=== PATIENT | male | born 1960 | race Caucasian/White ===

== ENCOUNTER 2021-06-14 01:06 | Emergency (ER) | payer SELFPAY ==
[2021-06-14] MEDS ORDERED: KETOROLAC 60 MG/2 ML VIAL IM STA (02:30)
[2021-06-14] MEDS ORDERED: HYDROmorphone 1 MG/ML CARPUJECT IM STA (02:30)
[2021-06-14] MEDS ORDERED: TAMSULOSIN 0.4 MG CAPSULE PO STA (02:30)
--- NOTE | 2021-06-14 04:02 | ED Physician Documentation ---
History of Present Illness - Stated complaint Stated Complaint: PAIN FROM PASSING KIDNEY STONES - Chief complaint Chief Complaint: Abd Pain - History obtained from History obtained from: Patient - Additonal information Additional information: The patient comes to the emergency department with chief complaint of left flank pain that started 8 days ago. He states that he has had no migration of the pa in and that this feels similar to the kidney stones he has had previously. The patient has a history of multiple stones and has had to have both lithotripsy and stents before. He sees a Dr. Scherer from [place] for urology, though he has not been there in a while because he has been able to pass his stones himself. He denies any other complaints at this time. No nausea or vomiting currently though he did vomit earlier. No fever or chills. No dysuria. No gross hematuria. Review of Systems Ten Systems: 10 systems reviewed and negative Constitutional: reports: Reviewed and negative Eyes: reports: Reviewed and negative Ears: reports: Reviewed and negative Nose: reports: Reviewed and negative Throat: reports: Reviewed and negative Cardiac: reports: Reviewed and negative Respiratory: reports: Reviewed and negative GI: reports: Abdominal Pain (Left flank), Nausea, Vomiting : reports: Reviewed and negative. denies: Dysuria, Frequency, Hematuria Skin: reports: Reviewed and negative Musculoskeletal: reports: Reviewed and negative Neurologic: reports: Reviewed and negative Psychiatric: reports: Reviewed and negative Endocrine: reports: Reviewed and negative Immunocompromised: reports: Reviewed and negative PD PAST MEDICAL HISTORY - Past Medical History Past Medical History: Yes Respiratory: Asthma : Kidney stones - Past Surgical History Past Surgical History: Yes Ortho: Other - Present Medications Home Medications: Ambulatory Orders Medication Instructions Recorded Confirmed HYDROcod/ACETAM 5/325 [Mather 5/325] 1 - 2 tablet PO Q6H PRN #25 tablet 06/14/21 Ondansetron Odt [Zofran] 4 mg TL Q6H PRN #10 tablet 06/14/21 Tamsulosin [Flomax] 1 cap PO DAILY #14 cap 06/14/21 - Allergies Allergies/Adverse Reactions: Allergies Allergy/AdvReac Type Severity Reaction Status Date / Time iodine Allergy Edema Verified 06/14/21 01:23 nut - unspecified Allergy Edema Verified 06/14/21 01:23 - Social History Does the pt smoke?: No Smoking Status: Never smoker Does the pt drink ETOH?: No Does the pt have substance abuse?: No - Immunizations Immunizations are current?: No Immunizations: No immun PD ED PE NORMAL - Vitals Vital signs reviewed: Yes - General General: Alert and oriented X 3, No acute distress, Well developed/nourished - HEENT HEENT: Atraumatic, PERRL, EOMI, Moist mucous membranes - Neck Neck: Supple, no meningeal sign - Cardiac Cardiac: RRR, No murmur, Strong equal pulses - Respiratory Respiratory: No respiratory distress, Clear bilaterally - Abdomen Abdomen: Soft, Non tender, Non distended - Back Back: No CVA TTP - Derm Derm: Normal color, Warm and dry, No rash - Extremities Extremities: No deformity, No edema - Neuro Neuro: Alert and oriented X 3, 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, Normal speech, Other (Grossly intact) - Psych Psych: Normal mood, Normal affect Results - Vitals Vitals: Oxygen O2 Source Room air - Rads (name of study) Ct abd/pelvis Radiology: Final report received, EMP read indepedently, See rad report (9mm proximal L stone, 2-3mm distal stone at UVJ) PD MEDICAL DECISION MAKING - ED course Complexity details: reviewed results, re-evaluated patient, considered differential, d/w patient ED course: The patient was treated symptomatically for his pain and sent for a noncontrast CT of the abdomen and pelvis, which showed a large proximal stone and a small distal stone. Pt was feeling much better, and I discussed with him that it is very important that he follows up with his urologist in a timely manner, as the proximal stone is quite large, and given the length of time he's had symptoms, may not pass. Pt expresses understanding. I have given him a prepack of hydrocodone and Zofran, and prescriptions for the same. We have discussed the usual indications for return. Departure - Departure Disposition: 01 Home, Self Care Clinical Impression: Kidney stones Condition: Stable Instructions: ED Stone Renal W Colic Follow-Up: Constanza Jesus MD [Physician No Access] - Prescriptions: Tamsulosin [Flomax] 1 cap PO DAILY #14 cap HYDROcod/ACETAM 5/325 [Mather 5/325] 1 - 2 tablet PO Q6H PRN #25 tablet PRN Reason: Pain Ondansetron Odt [Zofran] 4 mg TL Q6H PRN #10 tablet PRN Reason: Nausea / Vomiting Comments: Your CT report finally came back, and shows a very small stone that is right at the junction of your ureter and bladder. This 1 measures 2 to 3 mm and if it has not already passed into your bladder, and you should soon. Another at stone is noted in the very early part of your left ureter and is measured at 9 mm. This 1 is most likely trying to pass as well. You may use the medication for pain and nausea as needed and should also take the Flomax to relax your tube. Please drink plenty of water to help increase the pressure on the stone to pass. You should also call your urologist office first thing tomorrow anyway To set up a follow-up appointment, should the stone fail to pass on its own. At this size, it may or may not pass by itself. If you develop fevers or severe pain despite the medication, please return to the emergency department. Your prescriptions have been electronically transmitted to [facility] in [place]. Discharge Date/Time: 06/14/21 04:40
[2021-06-14] MEDS ORDERED: HYDROcod/ACET 5/325 Prepack 4 PO STA (04:29)
[2021-06-14] MEDS ORDERED: ONDANSETRON ODT 4 MG Prepack 2 TL STA (04:29)
[2021-06-14] MEDS ORDERED: ONDANSETRON ODT 4 MG Prepack 2 TL PRN (04:29)
[2021-06-14 04:46] VITALS: BP 139/85
--- NOTE | 2021-06-14 08:43 | CT Report ---
PROCEDURE: Abdomen/Pelvis WO INDICATIONS: flank pain, h/o kidney stones TECHNIQUE: Noncontrast 5 mm thick sections acquired from the diaphragms to the symphysis. 5 mm coronal and sagi ttal reformats were then performed. For radiation dose reduction, the following was used: automated exposure control, adjustment of mA and/or kV according to patient size. COMPARISON: None. FINDINGS: Image quality: Excellent. ABDOMEN: Lung bases: Lung bases are clear. Heart size is normal. Solid organs: Liver is normal in size. Small fairly well-defined hypodensities are noted in left lobe of liver and measures 1.1 and 1.3 cm in size series 3 images 22 and 26. Spleen is normal in size and enhancement. Gallbladder is within normal limits. Pancreas is normal in contours. No adrenal nodule s. Kidneys are normal in size. There is prominence of left renal collecting system and proximal left ureter with left perinephric fat stranding. 7 mm stone is noted in proximal left ureter 3 mm stone i s seen in left UVJ/left lateral dependent portion. Nonobstructing tiny bilateral renal calculi are se en. No right-sided hydronephrosis or hydroureter. 2 x 1.9 cm heterogeneously hypodense to isodense st ructure in posterior cortex of mid pole right kidney is seen series 3 image 51. Peritoneum and bowel: Unenhanced bowel loops demonstrate normal wall thickness and caliber. No free fluid or air. Appendix is visualized and is within normal limits. Nodes and vessels: No retroperitoneal or mesenteric adenopathy by size criteria. Aorta and inferior vena cava are normal in caliber. Miscellaneous: Small fat-containing umbilical hernia is seen. PELVIS: Genitourinary: Partially distended urinary bladder shows no definite bladder wall abnormality. Miscellaneous: No inguinal hernias or adenopathy. Bones: No suspicious bony lesions. No vertebral body compression fractures. IMPRESSION: 1. 7 mm left proximal ureteral stone with moderate left-sided hydronephrosis. Additional 3 mm left UV J stone/bladder stone. No right-sided hydronephrosis or hydroureter. Bilateral tiny nonobstructing re nal stones. 2. 2 x 1.9 cm heterogeneously hypodense to isodense structure in posterior cortex of mid pole right k idney and may represent hyperdense cysts. Solid renal lesion cannot be excluded. Ultrasound examinati on can be done for further evaluation of this area. 3. No bowel obstruction or abnormal bowel wall thickening. Normal appendix. No free fluid or free air . 4. Multiple hypodense areas in liver parenchyma and may represent hepatic cysts. No discrepancies from preliminary reading. Reviewed by: Chong Mojica MD on 06/14/2021 8:41 AM PDT Approved by: Chong Mojica MD on 06/14/2021 8:41 AM PDT Station ID: [id number]
--- NOTE | 2021-06-17 08:22 | ED Physician Documentation ---
ED Addendum - Addendum Addendum: 06/17/21 08:22 I spoke with the patient's . She reports the patient is having continued pain and is now having fevers at home. I told her they need to go immediately to an emergency department with a [place]rolog[place] told him to go directly to [facility] in [place]. He will likely need the stone removed. The states understanding of this and states that they will go to [facility] in [place] for further care.
== END 2021-06-14 04:40 | disposition home or self-care (01) ==
LOC: ED 01:06
DX: N13.2 Hydronephrosis with renal and ureteral calculous obstruction (principal); N21.0 Calculus in bladder
CPT/HCPCS: 74176; 96372; 99283; 99284; A9270; J1170